=== PATIENT | male | born 1985 | race Caucasian/White ===

== ENCOUNTER 2017-11-05 20:48 | Emergency (ER) | payer BC ==
[2017-11-05 20:56] VITALS: BP 140/91
[2017-11-05] MEDS ORDERED: OXYCODONE-ACETAMINOPHEN 5-325 MG TABLET PO ONE (21:33)
[2017-11-05] MEDS ORDERED: ONDANSETRON 4 MG TAB.RAPDIS PO ONE (21:33)
[2017-11-05] MEDS ORDERED: HYDROCODONE/ACETAMINOPHEN 5-325 MG (6 TAB/ER DISP) PO PRN (21:33)
--- NOTE | 2017-11-05 21:36 | ER Document Report ---
HPI - HPI Patient complains to provider of: right facial pain, dental pain Pain Level: 4 Context: Patient is a 32-year-old male comes emergency department for chief complaint of pain and swelling to the right facial area/jaw area that started last night, he states he was seen by urgent care earlier today, started on Augmentin and given a shot of Toradol, he states the area does not feel any better, questionably worse. He denies any neck pain, throat pain, fever. Past Medical History - General Information source: Patient - Social History Smoking Status: Never Smoker Drug Abuse: None Lives with: Family Family History: Reviewed & Not Pertinent - Medical History Medical History: Negative - Immunizations Immunizations up to date: Yes Hx Diphtheria, Pertussis, Tetanus Vaccination: Yes Vertical Provider Document - CONSTITUTIONAL General Appearance: WD/WN, Mild Distress - Patient shifting appears mildly uncomfortable but he is in no severe distress - HEENT HEENT: Atraumatic, Normocephalic Mouth Diagram: 1 - Dental caries with tenderness of the gumline with no noted swelling or abscess, normal oropharyngeal exam otherwise - NECK Neck: Normal Inspection - Normal neck and submandibular areas, no evidence of Paul's angina - RESPIRATORY Respiratory: Breath Sounds Normal, No Respiratory Distress - CARDIOVASCULAR Cardiovascular: Regular Rate, Regular Rhythm - GI/ABDOMEN Gastrointestinal: Abdomen Soft, Abdomen Non-Tender - MUSCULOSKELETAL/EXTREMETIES Musculoskeletal/Extremeties: MAEW, FROM, Non-Tender - NEURO Level of Consciousness: Awake, Alert, Appropriate - DERM Integumentary: Warm, Dry, No Rash Course - Re-evaluation Re-evalutation: Patient has dental caries, tender gumline, no evidence of abscess or other concerning a normality, questionable soft tissue swelling on the right side face which is minimal. Patient is already on appropriate antibiotics and just began them today. Discussed recommendations, provided with symptom relief here , he did decline a dental block, discussed follow-up, he already has follow-up arranged with dentist, discussed return precautions, patient states understanding and agreement. - Vital Signs Vital signs: Temp Pulse Resp BP Pulse Ox 98.6 F 77 18 140/91 H 97 11/05/17 20:53 11/05/17 20:53 11/05/17 20:53 11/05/17 20:53 11/05/17 20:53 Discharge - Discharge Clinical Impression: Pain, dental Condition: Stable Disposition: HOME, SELF-CARE Additional Instructions: Your evaluation is consistent with a dental infection, recommendation is to continue the Augmentin antibiotic as prescribed, take provided medication for pain if needed, swelling and pain should resolve. Follow-up with the dentist for additional management to prevent this from happening again. I recommend taking a probiotic while taking Augmentin. Return for any concerning symptoms including increased swelling or pain, fever, or any other concerning or worsening symptoms. Forms: Return to Work Referrals: FADY DIAZ FNP [Primary Care Provider] - Follow up as needed
== END 2017-11-05 21:50 | disposition home or self-care (01) ==
LOC: ER 20:48
DX: K02.9 Dental caries, unspecified (principal); K08.89 Other specified disorders of teeth and supporting structures
CPT/HCPCS: 99283; S0119